=== PATIENT | female | born 1945 | race Caucasian/White ===

== ENCOUNTER 2020-09-16 08:30 | Emergency (ER) | payer MEDICARE ==
[2020-09-16 08:59] LABS: BASOPHILS % (AUTO) 0.3 % (0.0-5.0); EOSINOPHILS % (AUTO) 1.5 % (0.0-8.0); HEMATOCRIT 42.9 % (36-48); LYMPHOCYTES % (AUTO) 18.9 % (21.0-51.0); MEAN CORPUSCULAR HEMOGLOBIN 32.7 pg (27.0-33.0); MEAN CORPUSCULAR HGB CONC 34.5 g/dL (32.0-36.0); MEAN CORPUSCULAR VOLUME 94.9 fL (79-99); MONOCYTES % (AUTO) 10.5 % (3.0-13.0); NEUTROPHILS % (AUTO) 68.6 % (40.0-77.0); PLATELET COUNT (AUTO) 198 K/uL (130-400); RED BLOOD CELL COUNT(AUTO) 4.52 MIL/uL (4.00-5.50); RED CELL DISTRIBUTION WIDTH 12.2 % (11.0-15.5); WHITE BLOOD COUNT (AUTO) 8.6 K/uL (4.8-10.8)
[2020-09-16 09:04] LABS: APPEARANCE,URINE CLEAR (CLEAR); BILIRUBIN,URINE MODERATE (NEGATIVE); COLOR,URINE YELLOW (YELLOW); GLUCOSE, URINE (UA) NEGATIVE (NEGATIVE); KETONES,URINE 5 mg/dL (NEGATIVE); LEUKOCYTE ESTERASE ,URINE NEGATIVE (NEGATIVE); NITRATE,URINE NEGATIVE (NEGATIVE); OCCULT BLOOD,URINE TRACE-INTACT (NEGATIVE); PROTEIN,URINE 100 mg/dL (NEGATIVE)
[2020-09-16] MEDS ORDERED: KETOROLAC TROMETHAMINE 15MG/ML ONE (09:11)
[2020-09-16] MEDS ORDERED: MORPHINE SULFATE 2 MG/ML 1ML SYG ONE (09:11)
[2020-09-16] MEDS ORDERED: ONDANSETRON HCL 4 MG/2 ML VIAL ONE (09:11)
[2020-09-16] MEDS ORDERED: LACTATED RINGERS 1000ML 1,000 ML IV ONE (09:12)
[2020-09-16 09:15] LABS: CREATININE 1.2 mg/dL (0.5-1.5)
[2020-09-16 09:20] LABS: BILIRUBIN,TOTAL 1.5 mg/dL (0.2-1.0)
[2020-09-16 09:26] LABS: BACTERIA,URINE Few /HPF (None Seen); HYALINE CASTS, URINE 51-100 /LPF (0-1 /LPF); MUCUS,URINE Few LPF (None Seen); RBC,URINE 0-1 /HPF (0-1); SQUAMOUS EPITHELIAL CELL,UR 0-2 /HPF (0-2); WBC,URINE None Seen /HPF (0-1)
== END 2020-09-16 13:23 | disposition home or self-care (01) ==
LOC: EDH 08:30
DX: K52.9 Noninfective gastroenteritis and colitis, unspecified (principal); Z90.49 Acquired absence of other specified parts of digestive tract; Z90.710 Acquired absence of both cervix and uterus; Z87.891 Personal history of nicotine dependence
CPT/HCPCS: 36415; 71045; 80053; 81001; 85025; 93005; 96361; 96374; 96375; 99285; J1885; J2405; J7120

== ENCOUNTER 2023-11-02 23:14 | Emergency (ER) | payer MEDICARE ==
[~2023-11-02] VITALS: Ht 160 cm; Wt 47.6 kg
[2023-11-02 23:58] LABS: SARS-CoV-2, RNA, NAAT NEGATIVE SARS CoV-2 (NEGATIVE)
[2023-11-03] MEDS ORDERED: PANTOPRAZOLE 40 MG/VIAL IVP ONE
[2023-11-03 00:04] LABS: INFLUENZA TYPE A Negative For Type A (NEGATIVE); INFLUENZA TYPE B Negative For Type B (NEGATIVE)
[2023-11-03 00:31] LABS: CREATININE 1.1 mg/dL (0.5-1.5); POTASSIUM 4.2 mmol/L (3.5-5.1)
[2023-11-03 00:40] LABS: BASOPHILS # (AUTO) 0.03 K/uL (0.00-0.20); BASOPHILS % (AUTO) 0.5 % (0.0-5.0); EOSINOPHILS # (AUTO) 0.12 K/uL (0.00-0.70); EOSINOPHILS % (AUTO) 1.9 % (0.0-8.0); HEMATOCRIT 36.7 % (36-48); IMMATURE GRANULOCYTE ABSOLUTE 0.01 K/uL (0-1); LYMPHOCYTES # (AUTO) 1.6 K/uL (1.0-4.8); LYMPHOCYTES % (AUTO) 25.4 % (21.0-51.0); MEAN CORPUSCULAR HEMOGLOBIN 33.2 pg (27.0-33.0); MEAN CORPUSCULAR HGB CONC 35.7 g/dL (32.0-36.0); MEAN CORPUSCULAR VOLUME 93.1 fL (79-99); MONOCYTES # (AUTO) 0.5 K/uL (0.1-1.0); MONOCYTES % (AUTO) 8.6 % (3.0-13.0); NEUTROPHILS % (AUTO) 63.4 % (40.0-77.0); PLATELET COUNT (AUTO) 167 K/uL (130-400); RED BLOOD CELL COUNT(AUTO) 3.94 MIL/uL (4.00-5.50); RED CELL DISTRIBUTION WIDTH 11.9 % (11.0-15.5); WHITE BLOOD COUNT (AUTO) 6.3 K/uL (4.8-10.8)
[2023-11-03] MEDS ORDERED: MORPHINE 2 MG SYG IVP ONE (01:00)
[2023-11-03] MEDS ORDERED: LEVOFLOXACIN 500 MG/D5W 100 ML 100 ML IV SCH (01:00)
[2023-11-03] MEDS ORDERED: LACTATED RINGERS 1000ML 1,047 ML IV ONE (01:00)
[2023-11-03] MEDS ORDERED: METRONIDAZOLE 500MG/100ML BAG 100 ML ONE (01:59)
[2023-11-03] MEDS ORDERED: CIPR-278 PO (02:20)
[2023-11-03] MEDS ORDERED: METR-172 PO (02:20)
[2023-11-03 03:49] VITALS: BP 146/72; PULSE 86; RESP 20; O2SAT 99
[2023-11-03] MEDS ORDERED: METRONIDAZOLE 500MG/100ML BAG 100 ML IVPB SCH (06:00)
== END 2023-11-03 04:02 | disposition home or self-care (01) ==
LOC: EDH 23:14
DX: A04.9 Bacterial intestinal infection, unspecified (principal); E78.00 Pure hypercholesterolemia, unspecified; I10 Essential (primary) hypertension; Z90.49 Acquired absence of other specified parts of digestive tract; Z90.710 Acquired absence of both cervix and uterus; Z20.822 Contact with and (suspected) exposure to COVID-19
CPT/HCPCS: 99285; 71045; 87635; 82270; 82550; 84484; 80048; 85025; 86850; 86900; 86901; 87046; 87804 ×2; 87324; 36415; 93005; 83630; 96365; 96375; 96368; C9113; J7120; J1956; J2270; J3490

== ENCOUNTER → 2024-05-28 | Outpatient (CLI) | payer MEDICARE ==
[~2024-05-28] MED LIST: CIPR-278 PO; METR-172 PO
[2024-05-28 14:58] LABS: CREATININE 0.8 mg/dL (0.5-1.0)
== END | disposition home or self-care (01) ==
LOC: LAB 14:18
PROVIDERS: ATTEND Internal Medicine Gastroenterology
DX: R63.4 Abnormal weight loss (principal)
CPT/HCPCS: 36415; 82565; 84520

== ENCOUNTER → 2024-06-04 | Outpatient (CLI) | payer MEDICARE ==
[~2024-06-04] MED LIST changes: +IOHEXOL-350 75 ML VIAL IV ONE
== END | disposition home or self-care (01) ==
LOC: RAH 07:35
PROVIDERS: ATTEND Internal Medicine Gastroenterology
DX: R63.4 Abnormal weight loss (principal); Z90.49 Acquired absence of other specified parts of digestive tract; Z90.710 Acquired absence of both cervix and uterus
CPT/HCPCS: 74177; Q9967